=== PATIENT | male | born 1995 | race Caucasian/White ===

== ENCOUNTER 2018-03-02 10:20 | Emergency (ER) | payer BC ==
[2018-03-02 12:06] LABS: Urine Blood NEGATIVE (NEG); Urine Glucose NEGATIVE (NEG); Urine Protein NEGATIVE (NEG)
[2018-03-02 12:11] LABS: Urine Bacteria NONE SEEN /HPF (NONE SEEN); Urine Culture Reflex Order NOT NEEDED; Urine RBC <5 /HPF (NONE SEEN); Urine Sperm PRESENT (NONE SEEN)
--- NOTE | 2018-03-02 12:14 | RAD REPORT ---
EXAM DESCRIPTION: US - Scrotum Testicles - 03/02/2018 11:41 am CLINICAL HISTORY: testicular pain COMPARISON: No comparisons FINDINGS: The right testicle 4.2 x 3.0 x 2.6 cm. No intratesticular masses or evidence of testicular torsion. The left testicle 4.0 x 2.9 x 2.2 cm. No intratesticular masses or evidence of testicular torsion. The right epididymis appears thickened mildly heterogenous. This may indicate underlying epididymitis . No pathologic fluid collections. IMPRESSION: No evidence of testicular torsion or intratesticular mass. Right sided epididymitis is possible.
--- NOTE | 2018-03-02 12:35 | EDPHYS ---
Physician Documentation [facility] Name: Thierry Zhou Age: 22 yrs Sex: Male : 1995 Arrival Date: 03/02/2018 Time: 10:23 Bed 23 Private MD: None, None ED Physician Anderson Saleh HPI: 03/02 12:42 This 22 yrs old Male presents to ER via Ambulatory with complaints of Back kb Pain, Testicular Pain. 12:42 The patient presents with scrotal pain, of the right side, in the area of the kb epidydimis. Severity of symptoms: At their worst the symptoms were moderate, in the emergency department the symptoms are unchanged. The patient has experienced a previous episode, last year. The patient has not recently seen a physician. 12:43 Onset: The symptoms/episode began/occurred today. Modifying factors: The symptoms are kb alleviated by nothing, the symptoms are aggravated by pressure. Associated signs and symptoms: The patient has no apparent associated signs or symptoms. Historical: - Allergies: 10:32 No Known Allergies; sg - Home Meds: 10:32 None [Active]; sg - PMHx: 10:32 None; sg - PSHx: 10:32 None; sg - Immunization history:: Adult Immunizations up to date. - Social history:: Smoking status: Patient/guardian denies using tobacco. - Ebola Screening: : Patient negative for fever greater than or equal to 101.5 degrees Fahrenheit, and additional compatible Ebola Virus Disease symptoms Patient denies exposure to infectious person Patient denies travel to an Ebola-affected area in the 21 days before illness onset No symptoms or risks identified at this time. ROS: 12:38 Constitutional: Negative for fever, chills, and weight loss, Cardiovascular: Negative kb for chest pain, palpitations, and edema, Respiratory: Negative for shortness of breath, cough, wheezing, and pleuritic chest pain, Abdomen/GI: Negative for abdominal pain, nausea, vomiting, diarrhea, and constipation, MS/Extremity: Negative for injury and deformity, Skin: Negative for injury, rash, and discoloration, Neuro: Negative for headache, weakness, numbness, tingling, and seizure. 12:38 : Positive for flank pain, testicular pain of the right flank and right testicle. Exam: 12:38 Constitutional: This is a well developed, well nourished patient who is awake, alert, kb and in no acute distress. Head/Face: Normocephalic, atraumatic. Chest/axilla: Normal chest wall appearance and motion. Nontender with no deformity. No lesions are appreciated. Cardiovascular: Regular rate and rhythm with a normal S1 and S2. No gallops, murmurs, or rubs. Normal PMI, no JVD. No pulse deficits. Respiratory: Lungs have equal breath sounds bilaterally, clear to auscultation and percussion. No rales, rhonchi or wheezes noted. No increased work of breathing, no retractions or nasal flaring. Abdomen/GI: Soft, non-tender, with normal bowel sounds. No distension or tympany. No guarding or rebound. No evidence of tenderness throughout. Skin: Warm, dry with normal turgor. Normal color with no rashes, no lesions, and no evidence of cellulitis. MS/ Extremity: Pulses equal, no cyanosis. Neurovascular intact. Full, normal range of motion. Neuro: Awake and alert, GCS 15, oriented to person, place, time, and situation. Cranial nerves II-XII grossly intact. Motor strength 5/5 in all extremities. Sensory grossly intact. Cerebellar exam normal. Normal gait. 12:38 : Male external genitalia: tenderness, of the right testicle is noted, that is moderate. Vital Signs: 10:31 BP 142 / 77; Pulse 68; Resp 16 S; Temp 98.1(O); Pulse Ox 99% on R/A; Weight 127.01 kg sg (R); Height 6 ft. 0 in. (182.88 cm); Pain 7/10; 12:29 BP 124 / 70 LA Sitting (auto/lg); Pulse 69 MON; Resp 18 S; Pulse Ox 99% on R/A; Pain jp3 6/10; 10:31 Body Mass Index 37.97 (127.01 kg, 182.88 cm) MDM: 11:38 Patient medically screened. kb 12:41 Data reviewed: vital signs, nurses notes. Data interpreted: Pulse oximetry: on room air kb is 99 %. Interpretation: normal. 12:44 Counseling: I had a detailed discussion with the patient and/or guardian regarding: the kb historical points, exam findings, and any diagnostic results supporting the discharge/admit diagnosis, lab results, radiology results, the need for outpatient follow up, a urologist, to return to the emergency department if symptoms worsen or persist or if there are any questions or concerns that arise at home. 03/02 11:55 Order name: Urine Dipstick--Ancillary (enter results); Complete Time: 12:20 mb4 03/02 11:56 Order name: Urine Microscopic Only; Complete Time: 12:20 ss 03/02 10:50 Order name: US Scrotum Testicles; Complete Time: 12:20 kb 03/02 11:38 Order name: Urine Dipstick-Ancillary (obtain specimen); Complete Time: 11:56 kb Administered Medications: 12:45 Drug: Rocephin (cefTRIAXone) 250 mg Route: IM; Site: right deltoid; ss 13:05 Follow up: Response: No adverse reaction hj 12:52 Drug: Doxycycline 100 mg Route: PO; ss 13:05 Follow up: Response: No adverse reaction hj Disposition: 14:46 Co-signature as Attending Physician, Anderson Saleh MD I agree with the assessment and kdr plan of care. Disposition: 03/02/18 12:34 Discharged to Home. Impression: Epididymitis. - Condition is Stable. - Discharge Instructions: Epididymitis. - Prescriptions for Doxycycline Hyclate 100 mg Oral Tablet - take 1 tablet by ORAL route every 12 hours; 20 tablet. - Medication Reconciliation Form, Thank You Letter, Antibiotic Education, Prescription Opioid Use form. - Follow up: Emergency Department; When: As needed; Reason: Worsening of condition. Follow up: Jose Delvalle MD; When: 2 - 3 days; Reason: Recheck today's complaints. Signatures: Dispatcher [employer] Jo Quezada, REZA-C INTERVENTIONAL NEURORADIOLOGIST-CkBrendan Waldrop RN RN sg Rittger, Kevin, MD MD kdr Smirch, Shelby, RN RN ss Joaquin, Henry, RN RN hj Corrections: (The following items were deleted from the chart) 13:05 12:34 03/02/2018 12:34 Discharged to Home. Impression: Epididymitis. Condition is hj Stable. Forms are Medication Reconciliation Form, Thank You Letter, Antibiotic Education, Prescription Opioid Use. Follow up: Emergency Department; When: As needed; Reason: Worsening of condition. Follow up: Jose Delvalle; When: 2 - 3 days; Reason: Recheck today's complaints. kb
--- NOTE | 2018-03-02 12:35 | ER ---
Nurse's Notes [facility] Name: Thierry Zhou Age: 22 yrs Sex: Male : 1995 Arrival Date: 03/02/2018 Time: 10:23 Bed 23 Private MD: None, None Diagnosis: Epididymitis Presentation: 03/02 10:30 Presenting complaint: Patient states: Right testicular pain, radiating into the right sg lower back, reports having hx of epididymitis, but this feels like it hurts worse than that. pt denies V/D/FEVER, reports nausea. Transition of care: patient was not received from another setting of care. Onset of symptoms was March 02, 2018. Risk Assessment: Do you want to hurt yourself or someone else? Patient reports no desire to harm self or others. Initial Sepsis Screen: Does the patient meet any 2 criteria? No. Patient's initial sepsis screen is negative. Does the patient have a suspected source of infection? No. Patient's initial sepsis screen is negative. Care prior to arrival: None. 10:30 Method Of Arrival: Ambulatory sg 10:30 Acuity: [place] 3 sg Historical: - Allergies: 10:32 No Known Allergies; sg - Home Meds: 10:32 None [Active]; sg - PMHx: 10:32 None; sg - PSHx: 10:32 None; sg - Immunization history:: Adult Immunizations up to date. - Social history:: Smoking status: Patient/guardian denies using tobacco. - Ebola Screening: : Patient negative for fever greater than or equal to 101.5 degrees Fahrenheit, and additional compatible Ebola Virus Disease symptoms Patient denies exposure to infectious person Patient denies travel to an Ebola-affected area in the 21 days before illness onset No symptoms or risks identified at this time. Screenin:50 Abuse screen: Denies threats or abuse. Denies injuries from another. Nutritional ss screening: No deficits noted. Tuberculosis screening: Never had TB. Fall Risk None identified. Assessment: 11:40 Reassessment: Pt in ultrasound at this time. geotechnical laboratory technician instructed to bring ss patient back to exam room 23 for further evaluation. 11:50 General: Appears in no apparent distress. comfortable, Behavior is calm, cooperative, ss Denies fever, feeling ill, fatigue, chills. Pain: Complains of pain in right testicle Pain radiates to right mid back Pain currently is 7 out of 10 on a pain scale. Quality of pain is described as burning, aching, tender, Pain began 1.5 weeks ago Is continuous. Neuro: Level of Consciousness is awake, alert, Oriented to person, place, time, situation. Cardiovascular: Capillary refill < 3 seconds is brisk in bilateral fingers. Respiratory: Airway is patent Respiratory effort is even, unlabored, Respiratory pattern is regular, Denies cough, shortness of breath. GI: Patient currently denies abdominal pain, diarrhea, nausea, vomiting. : Denies burning with urination, discharge, urinary frequency. : redness and swelling noted to R testicle. Pt c/o tenderness to affected area. Pt reports that the last night he had epididymitis that this is somewhat how it felt. EENT: Nares are clear Oral mucosa is moist. Throat is clear. Derm: Skin is intact, is healthy with good turgor, Skin is dry, Skin is pink, warm \T\ dry. normal, Skin temperature is warm. Musculoskeletal: Circulation, motion, and sensation intact. Range of motion: intact in all extremities. 12:52 Reassessment: Patient appears in no apparent distress at this time. Patient and/or ss family updated on plan of care and expected duration. Pain level reassessed. Patient is alert, oriented x 3, equal unlabored respirations, skin warm/dry/pink. Vital Signs: 10:31 BP 142 / 77; Pulse 68; Resp 16 S; Temp 98.1(O); Pulse Ox 99% on R/A; Weight 127.01 kg sg (R); Height 6 ft. 0 in. (182.88 cm); Pain 7/10; 12:29 BP 124 / 70 LA Sitting (auto/lg); Pulse 69 MON; Resp 18 S; Pulse Ox 99% on R/A; Pain jp3 6/10; 10:31 Body Mass Index 37.97 (127.01 kg, 182.88 cm) sg ED Course: 10:23 Patient arrived in ED. sb2 10:24 None, None is Private Physician. sb2 10:31 Triage completed. sg 10:31 Arm band placed on. sg 11:34 US Scrotum Testicles In Process Unspecified. EDMS 11:37 Jo Lopez FNP-C is PHCP. kb 11:37 Anderson Saleh MD is Attending Physician. kb 11:40 Karis Dickey, RN is Primary Nurse. ss 11:41 Ultrasound completed. aa4 11:50 Patient has correct armband on for positive identification. Placed in gown. Bed in low ss position. Call light in reach. Side rails up X 1. Adult w/ patient. 11:50 Urine collected: clean catch specimen, clear. ss 11:51 Patient moved back from ultrasound. aa4 12:34 Jose Delvalle MD is Referral Physician. kb 12:52 No provider procedures requiring assistance completed. Patient did not have IV access ss during this emergency room visit. Administered Medications: 12:45 Drug: Rocephin (cefTRIAXone) 250 mg Route: IM; Site: right deltoid; ss 13:05 Follow up: Response: No adverse reaction hj 12:52 Drug: Doxycycline 100 mg Route: PO; ss 13:05 Follow up: Response: No adverse reaction hj Outcome: 12:34 Discharge ordered by MD. kb 12:55 Condition: good ss 12:55 Discharge instructions given to patient, significant other, Instructed on discharge instructions, follow up and referral plans. medication usage, Demonstrated understanding of instructions, follow-up care, medications, Prescriptions given X 1. 13:05 Discharged to home ambulatory, with family. hj 13:05 Patient left the ED. hj Signatures: Dispatcher [employer] EDMS Jo Lopez, INSTALLATION SERVICE REPRESENTATIVE-C INSTALLATION SERVICE REPRESENTATIVE-CkBrendan Waldrop, RN RN Loren Culver aa4 Karis Dickey, LARA BERMUDEZ Omega Hays RN RN Liseth Leone 2 López Lopez jp3
[2018-03-02] MEDS ORDERED: CEFTRIAXONE 250 MG/VIAL ONE (12:42)
[2018-03-02] MEDS ORDERED: DOXYCYCLINE 100 MG CAP PO ONE (12:43)
[2018-03-02] MEDS ORDERED: WATER FOR INJ,STERILE 10 ML ONE (12:43)
== END 2018-03-02 13:05 | disposition home or self-care (01) ==
LOC: ER 10:20
DX: N45.1 Epididymitis (principal)
CPT/HCPCS: 76870; 81003; 81015; 96372; 99284; J0696